=== PATIENT | male | born 1965 | race Caucasian/White ===

== ENCOUNTER 2021-06-13 08:51 | Outpatient (REF) | payer OTHER, SELFPAY ==
[2021-06-13 11:36] LABS: Hemoglobin 15.2 g/dl (14.0-18.0); Mean Corpuscular Hemoglobin 32.3 pg (27.0-33.0); Mean Corpuscular Volume 97.9 fL (80.0-98.0); Mean Platelet Volume 10.4 fL (9.4-12.4); Platelet Count 227 X10*3/uL (160-400); Red Cell Distribution Width 12.9 % (11.0-16.0); White Blood Count 4.2 X10*3/uL (4.8-10.8)
[2021-06-13 12:10] LABS: Thyroid Stimulating Hormone 2.18 uIU/mL (0.32-4.0)
[2021-06-13 12:26] LABS: Folate 13.6 ng/mL (> or = 4.0); Vitamin B12 327 pg/mL (200-900)
[2021-06-13 12:27] LABS: Alanine Aminotransferase 22 U/L (0-40); Albumin Level 4.2 g/dL (3.5-5.0); Alkaline Phosphatase 44 U/L (39-117); Anion Gap 13 (12-20); Aspartate Amino Transferase 28 U/L (5-37); Bilirubin Direct 0.3 mg/dL (0.0-0.5); Bilirubin Total 0.9 mg/dL (0.0-1.0); Blood Urea Nitrogen 17 mg/dL (9-16); Calcium 9.7 mg/dL (8.4-10.2); Carbon Dioxide 26 mmol/L (22-29); Chloride 105 mmol/L (96-108); Cholesterol 209 mg/dL; Estimated Glomerular Filt Rate > 60; Glucose Random 95 mg/dL (60-115); HDL Cholesterol 53 mg/dL; LDL Cholesterol Calculated 142 mg/dl; Potassium 5.6 mmol/L (3.3-5.1); Sodium 138 mmol/L (135-145); Total Protein 6.8 g/dL (6.5-8.0); Triglycerides 71 mg/dL
[2021-06-18 14:52] LABS: Vitamin D 25-OH, D2 <4 ng/mL; Vitamin D 25-OH, D3 18 ng/mL; Vitamin D 25-OH, Total 18 ng/mL (30-100)
== END 2021-06-13 08:52 | disposition home or self-care (01) ==
LOC: HO.HMGCLDS 08:51
PROVIDERS: Visit Provider Internal Medicine
DX: Z00.00 Encounter for general adult medical examination without abnormal findings (principal)
CPT/HCPCS: 36415; 80048; 80061; 80076; 82306; 82607; 82746; 84443; 85027

== ENCOUNTER 2021-06-17 09:02 | Outpatient (REF) | payer OTHER, SELFPAY ==
[2021-06-17 12:46] LABS: Anion Gap 11 (12-20); Blood Urea Nitrogen 13 mg/dL (9-16); Calcium 9.6 mg/dL (8.4-10.2); Carbon Dioxide 28 mmol/L (22-29); Chloride 106 mmol/L (96-108); Estimated Glomerular Filt Rate > 60; Glucose Random 94 mg/dL (60-115); Potassium 4.5 mmol/L (3.3-5.1); Sodium 140 mmol/L (135-145)
== END 2021-06-17 09:03 | disposition home or self-care (01) ==
LOC: HO.HMGCLDS 09:02
PROVIDERS: Visit Provider Internal Medicine
DX: E87.5 Hyperkalemia (principal)
CPT/HCPCS: 36415; 80048

== ENCOUNTER 2022-06-12 09:10 | Outpatient (REF) | payer OTHER, SELFPAY ==
[2022-06-12 10:23] LABS: Hematocrit 44.2 % (42.0-52.0); Hemoglobin 14.9 g/dl (14.0-18.0); Mean Corpuscular HGB Conc 33.7 g/dl (31.0-36.0); Mean Corpuscular Hemoglobin 32.7 pg (27.0-33.0); Mean Corpuscular Volume 97.1 fL (80.0-98.0); Mean Platelet Volume 10.2 fL (9.4-12.4); Platelet Count 263 X10*3/uL (160-400); Red Blood Count 4.55 X10*6/uL (4.60-5.80); Red Cell Distribution Width 12.4 % (11.0-16.0); White Blood Count 4.1 X10*3/uL (4.8-10.8)
[2022-06-12 10:55] LABS: Alanine Aminotransferase 30 U/L (0-40); Albumin Level 4.2 g/dL (3.5-5.0); Alkaline Phosphatase 44 U/L (39-117); Anion Gap 13 (12-20); Aspartate Amino Transferase 27 U/L (5-37); Bilirubin Direct 0.3 mg/dL (0.0-0.5); Bilirubin Total 0.9 mg/dL (0.0-1.0); Blood Urea Nitrogen 14 mg/dL (9-16); Calcium 9.6 mg/dL (8.4-10.2); Carbon Dioxide 27 mmol/L (22-29); Chloride 106 mmol/L (96-108); Cholesterol 177 mg/dL; Estimated Glomerular Filt Rate > 60; Glucose Random 72 mg/dL (60-115); HDL Cholesterol 46 mg/dL; LDL Cholesterol Calculated 118 mg/dl; Potassium 4.9 mmol/L (3.3-5.1); Sodium 141 mmol/L (135-145); Total Protein 6.5 g/dL (6.5-8.0); Triglycerides 66 mg/dL
[2022-06-12 11:00] LABS: Prostate Specific Antigen Scr 1.71 ng/mL (<0.05-4.0); Thyroid Stimulating Hormone 1.13 uIU/mL (0.32-4.0)
== END 2022-06-12 09:11 | disposition home or self-care (01) ==
LOC: HO.10HDL 09:10
PROVIDERS: Visit Provider Internal Medicine
DX: Z12.5 Encounter for screening for malignant neoplasm of prostate (principal); I10 Essential (primary) hypertension; N40.0 Benign prostatic hyperplasia without lower urinary tract symptoms
CPT/HCPCS: 36415; 80048; 80061; 80076; 84153; 84443; 85027

== ENCOUNTER 2023-04-23 09:23 | Outpatient (AMB) | payer OTHER, SELFPAY ==
--- NOTE | 2023-04-23 09:27 | A.OFFPC_ITS ---
Vital Signs 04/23/23 09:29 Height 5 ft 7.5 in Weight 158 lb 2 oz BMI 24.4 BP 110/70 Blood Pressure Location Lt brachial Position Sitting Intake Visit Reasons: Hypertension Intake Note: Patient is here to follow up on HTN. Construction Carpenters Helper Required: No Cut Out Worker: Not Required per policy Accompanied by: Self / Same As Patient Allergies No Known Allergies Allergy (Verified 04/24/23 09:31) Medication List - Last Reconciled 04/24/23 by Alonso Danielle MD cholecalciferol (vitamin D3) 1,250 mcg PO QWEEK lisinopril 10 mg PO DAILY sumatriptan succinate 50 mg PO ONCE 30 days Tobacco use date assessed: 04/23/23 Dental Screening Dental Screen Date: 04/23/23 Did you have a dental visit in the last 12 months?: Yes Did you have a dental problem in the last 6 months where you did not have access to dental care?: No Was dental information given to patient?: Patient has dentist HPI Hypertension HPI Details 57-year-old male presents to the office to discuss his chronic medical conditions. Patient is in good health and able to do all activities of daily living. He checks his blood pressures at home and the systolic ranges between 130-135 and diastolic is 85-95. He is exercising 5 to 6 times a week. Quantity of alcohol consumption has reduced to 2-3 drinks 3 times a week. Able to function and do all activities of daily living. [facility] Medical History (Updated 04/24/23 @ 09:33 by Alonso Danielle MD) Benign prostatic hyperplasia without lower urinary tract symptoms Essential (primary) hypertension Surgical History No history of previous surgery Family History Mother No problems noted. Father High blood pressure Other Mental health disorder Social History Housing: House Alcohol intake: current Alcohol intake frequency: holidays/special occasions only Patient Tobacco Use Status: Never used Tobacco e-Cigarette/Vaping Use: Never Used Second Hand Smoke Exposure: No service: No Current occupational status: employed Current occupation: Utility Current occupational exposures/hazards: No Cognitive needs: No Hearing needs: No Vision needs: Yes (reading glasses) Questionnaire PHQ-9 Over the last 2 weeks, how often have you been bothered by any of the following problems? 1. Little interest or pleasure in doing things: not at all 2. Feeling down, depressed, or hopeless: not at all 3. Trouble falling or staying asleep, or sleeping too much: not at all 4. Feeling tired or having little energy: not at all 5. Poor appetite or overeating: not at all 6. Feeling bad about yourself - or that you are a failure or have let yourself or your family down: not at all 7. Trouble concentrating on things, such as reading the newspaper or watching television: not at all 8. Moving or speaking so slowly that other people could have noticed. Or the opposite - being so fidgety or restless that you have been moving around a lot more than usual: not at all 9. Thoughts that you would be better off or of hurting yourself in some way: not at all Total score: 0 Depression Screening Interpretation: Negative Depression Screening Done: Yes Source: Developed by Drs. He Bentley, Olivia Gupta, Tyshawn Frost and colleagues, with an educational agus from [employer]. Thrive Questionnaire Date Thrive assessed: 04/23/23 I am a: Patient What is your living situation today?: I have a steady place to live Within the past 12 months, did the food you bought not last and you didn't have the money to get more?: Never true Within the past 12 months, did you worry whether your food would run out before you got money to buy more?: Never true Do you have trouble paying for medicines?: No Do you have trouble getting transportation to medical appointments?: No Do you have trouble paying your heating and electricity bill?: No Do you have trouble taking care of your child, family member or friend?: No Do you have trouble with day-to-day activities such as bathing, preparing meals, shopping, managing finances, etc.?: No Are you currently unemployed and looking for a job?: No Are you interested in more education?: No Currently or been in a relationship where the following occur: no concerns reported THRIVE Score: 0 AUDIT C Alcohol Use Questionnaire (AUDIT-C) 1. How often do you have a drink containing alcohol?: Monthly or less 2. How many drinks containing alcohol do you have on a typical day when you are drinking?: 1 or 2 Total Score: 1 SANG-7 AMB Questionnaire SANG-7 Date SANG - 7 assessed: 04/23/23 Feeling nervous, anxious, or on edge: 0 = Not at all Not being able to stop or control worryin = Not at all Worrying too much about different things: 0 = Not at all Trouble relaxin = Not at all Being so restless that it is hard to sit still: 0 = Not at all Becoming easily annoyed or irritable: 0 = Not at all Feeling afraid as if something awful might happen: 0 = Not at all Total SANG-7 score (0-4 normal; 5-9 mild; 10-14 moderate; 15-21 severe): 0 Source: Developed by Drs. He Bentley, Olivia Gupta, Tyshawn Frost and colleagues, with an educational agus from [employer]. Physical exam (Primary Care) Vital Signs: Last Vital Signs BP 110/70 04/23/23 09:29 Care Plan Goal for BP management: Blood pressure is in range. BMI result Body Mass Index 24.4 Tobacco/Smoking Status: Tobacco use Status Tobacco use date assessed 04/23/23 04/23/23 09:34 Patient Tobacco Use Status Never used Tobacco 04/23/23 09:34 e-Cigarette/Vaping Use Never Used 04/23/23 09:34 PHQ-9: PHQ-9 Score PHQ-9: Total score 0 04/23/23 10:16 Depression Screening Interpretation: Negative Thrive Assessment: Date of Thrive Assessment Date Thrive assessed 04/23/23 04/23/23 09:34 Currently or been in a relationship where the following occur: no concerns reported Assessment and Plan Assessment & Plan (1) Essential (primary) hypertension: Code(s): I10 - Essential (primary) hypertension Plan: Blood pressure is in range. Did not increase the blood pressure medications. Continue medications at the same dosage. Blood work has been ordered. Will call with results of the blood work. (2) Benign prostatic hyperplasia without lower urinary tract symptoms: Code(s): N40.0 - Benign prostatic hyperplasia without lower urinary tract symptoms Plan: Currently has no symptoms. PSA to be checked. Orders: Orders Thyroid Stimulating Hormone 04/23/23 I10 - Essential (primary) hypertension UA and rflx microscopic 04/23/23 I10 - Essential (primary) hypertension Basic Metabolic Panel 04/23/23 I10 - Essential (primary) hypertension Complete Blood Count no Diff 04/23/23 I10 - Essential (primary) hypertension Lipid Panel 04/23/23 I10 - Essential (primary) hypertension Liver Panel 04/23/23 I10 - Essential (primary) hypertension Coding Level of Care Code Est Pt Level 4 (49548) Diagnoses Essential (primary) hypertension I10 Benign prostatic hyperplasia without lower urinary tract symptoms N40.0
[2023-04-23 09:29] VITALS: BP 110/70; BMI 24.4
== END 2023-04-23 10:18 | disposition home or self-care (01) ==
PROVIDERS: PCP Internal Medicine; Visit Provider Internal Medicine
DX: I10 Essential (primary) hypertension (principal); N40.0 Benign prostatic hyperplasia without lower urinary tract symptoms
CPT/HCPCS: 99214

== ENCOUNTER 2023-09-03 10:52 | Outpatient (REF) | payer OTHER, SELFPAY ==
[2023-09-03 13:20] LABS: Hematocrit 49.6 % (42.0-52.0); Mean Corpuscular HGB Conc 34.3 g/dl (31.0-36.0); Mean Corpuscular Hemoglobin 33.7 pg (27.0-33.0); Mean Corpuscular Volume 98.2 fL (80.0-98.0); Mean Platelet Volume 9.7 fL (9.4-12.4); Platelet Count 315 X10*3/uL (160-400); Red Blood Count 5.05 X10*6/uL (4.60-5.80); Red Cell Distribution Width 12.7 % (11.0-16.0); White Blood Count 6.4 X10*3/uL (4.8-10.8)
[2023-09-03 13:53] LABS: Prostate Specific Antigen Scr 3.16 ng/mL (<0.05-4.0)
[2023-09-03 14:06] LABS: Alanine Aminotransferase 24 U/L (0-40); Alkaline Phosphatase 61 U/L (39-117); Anion Gap 17 (12-20); Aspartate Amino Transferase 45 U/L (5-37); Bilirubin Direct 0.3 mg/dL (0.0-0.5); Blood Urea Nitrogen 14 mg/dL (9-16); Calcium 11.1 mg/dL (8.4-10.2); Carbon Dioxide 27 mmol/L (22-29); Chloride 102 mmol/L (96-108); Cholesterol 280 mg/dL (<200); Estimated Glomerular Filt Rate > 60; Glucose Random 122 mg/dL (60-115); HDL Cholesterol 69 mg/dL (>40); LDL Cholesterol Calculated 188 mg/dL (<100); Potassium 5.5 mmol/L (3.3-5.1); Sodium 140 mmol/L (135-145); Total Protein 8.5 g/dL (6.5-8.0); Triglycerides 117 mg/dL (<150)
[2023-09-03 14:07] LABS: Thyroid Stimulating Hormone 1.64 uIU/mL (0.32-4.0)
== END 2023-09-03 10:53 | disposition home or self-care (01) ==
LOC: HO.HMGCLDS 10:52
PROVIDERS: PCP Internal Medicine; Visit Provider Internal Medicine
DX: I10 Essential (primary) hypertension (principal); N40.0 Benign prostatic hyperplasia without lower urinary tract symptoms; Z12.5 Encounter for screening for malignant neoplasm of prostate
CPT/HCPCS: 36415; 80048; 80061; 80076; 84153; 84443; 85027

== ENCOUNTER 2023-10-15 08:14 | Outpatient (REF) | payer BC, SELFPAY ==
[2023-10-15 10:24] LABS: Cholesterol 205 mg/dL (<200); HDL Cholesterol 51 mg/dL (>40); LDL Cholesterol Calculated 141 mg/dL (<100); Triglycerides 68 mg/dL (<150)
== END 2023-10-15 08:15 | disposition home or self-care (01) ==
LOC: HO.HMGCLDS 08:14
PROVIDERS: PCP Internal Medicine; Visit Provider Internal Medicine
DX: Z13.220 Encounter for screening for lipoid disorders (principal); Z83.42 Family history of familial hypercholesterolemia
CPT/HCPCS: 36415; 80061

== ENCOUNTER 2023-10-29 10:21 | Outpatient (AMB) | payer BC, SELFPAY ==
[2023-10-29 10:25] VITALS: BP 144/90; PULSE 91; O2SAT 98; BMI 24.1
--- NOTE | 2023-10-29 10:25 | MHC.PC.OV ---
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 [facility] Medical History (Updated 10/29/23 @ 13:33 by Alonso Danielle MD) Hypercholesterolemia Benign prostatic hyperplasia without lower urinary tract symptoms Essential (primary) hypertension Surgical History No history of previous surgery Family History Mother No problems noted. Father High blood pressure Other Mental health disorder Social History Housing: House Alcohol intake: current Alcohol intake frequency: holidays/special occasions only Patient Tobacco Use Status: Never used Tobacco e-Cigarette/Vaping Use: Never Used Second Hand Smoke Exposure: No service: No Current occupational status: employed Current occupation: Utility Current occupational exposures/hazards: No Cognitive needs: No Hearing needs: No Vision needs: Yes (reading glasses) Questionnaire PHQ-9 Over the last 2 weeks, how often have you been bothered by any of the following problems? 1. Little interest or pleasure in doing things: not at all 2. Feeling down, depressed, or hopeless: not at all 3. Trouble falling or staying asleep, or sleeping too much: not at all 4. Feeling tired or having little energy: not at all 5. Poor appetite or overeating: not at all 6. Feeling bad about yourself - or that you are a failure or have let yourself or your family down: not at all 7. Trouble concentrating on things, such as reading the newspaper or watching television: not at all 8. Moving or speaking so slowly that other people could have noticed. Or the opposite - being so fidgety or restless that you have been moving around a lot more than usual: not at all 9. Thoughts that you would be better off or of hurting yourself in some way: not at all Total score: 0 Depression Screening Interpretation: Negative Depression Screening Done: Yes Source: Developed by Drs. He Bentley, Tyshawn Matos and colleagues, with an educational agus from [employer]. Thrive Questionnaire Date Thrive assessed: 04/23/23 Currently or been in a relationship where the following occur: No concerns reported THRIVE Score: 0 AUDIT C Alcohol Use Questionnaire (AUDIT-C) 1. How often do you have a drink containing alcohol?: Monthly or less 2. How many drinks containing alcohol do you have on a typical day when you are drinking?: 1 or 2 3. How often do you have six or more drinks on one occasion?: Never Total Score: 1 SANG-7 AMB Questionnaire SANG-7 Date SANG - 7 assessed: 10/29/23 Feeling nervous, anxious, or on edge: 0 = Not at all Not being able to stop or control worryin = Not at all Worrying too much about different things: 0 = Not at all Trouble relaxin = Not at all Being so restless that it is hard to sit still: 0 = Not at all Becoming easily annoyed or irritable: 0 = Not at all Feeling afraid as if something awful might happen: 0 = Not at all Total SANG-7 score (0-4 normal; 5-9 mild; 10-14 moderate; 15-21 severe): 0 Source: Developed by Drs. He Bentley, Olivia Gupta, Tyshawn Frost and colleagues, with an educational agus from [employer]. Physical exam (Primary Care) Vital Signs: Last Vital Signs Pulse 91 10/29/23 10:25 BP 144/90 H 10/29/23 10:25 Pulse Ox 98 10/29/23 10:25 Oxygen Delivery Method Room Air 08/15/24 10:25 Care Plan Goal for BP management: Blood pressure is in range. BMI result Body Mass Index 24.1 Tobacco/Smoking Status: Tobacco use Status Tobacco use date assessed 04/23/23 10/29/23 10:29 Patient Tobacco Use Status Never used Tobacco 10/29/23 10:29 e-Cigarette/Vaping Use Never Used 10/29/23 10:29 PHQ-9: PHQ-9 Score PHQ-9: Total score 0 10/29/23 10:29 Depression Screening Interpretation: Negative Thrive Assessment: Date of Thrive Assessment Date Thrive assessed 04/23/23 10/29/23 10:29 Currently or been in a relationship where the following occur: No concerns reported Const General: cooperative and healthy appearing Nutritional Appearance: well nourished Orientation/consciousness: patient oriented x3 Limitations: no limitations HENMT Head: Yes normal to inspection Eyes General: appearance normal, both eyes and all related structures Neck Neck: Yes normal visual inspection Chest Chest palpation & inspection: normal palpation of entire chest wall Resp Effort & Inspection: normal respiratory effort Neuro General: patient oriented x3 Assessment and Plan Assessment & Plan (1) Hypercholesterolemia: Code(s): E78.00 - Pure hypercholesterolemia, unspecified Plan: Blood work reviewed. LDL is elevated. Patient was encouraged to start statins. (2) Essential (primary) hypertension: Code(s): I10 - Essential (primary) hypertension Plan: Blood pressure is in range. (3) Annual physical exam: Code(s): Z00.00 - Encounter for general adult medical examination without abnormal findings Plan: Up-to-date on screening colonoscopy. Coding Level of Care Code Est Pt Prev Care 40-64y(29442) Diagnoses Hypercholesterolemia E78.00 Essential (primary) hypertension I10 Annual physical exam Z00.00
== END 2023-10-29 11:00 | disposition home or self-care (01) ==
PROVIDERS: PCP Internal Medicine; Visit Provider Internal Medicine
DX: E78.00 Pure hypercholesterolemia, unspecified (principal); I10 Essential (primary) hypertension; Z00.00 Encounter for general adult medical examination without abnormal findings
CPT/HCPCS: 99396

== ENCOUNTER 2024-06-16 08:52 | Outpatient (REF) | payer BC, SELFPAY ==
[2024-06-16 11:03] LABS: Appearance Urine Clear; Color Urine Yellow; Glucose Urine UA Negative (Negative); Leukocyte Esterase Urine Negative (Negative); Nitrite Urine Negative (Negative); Urine Blood Negative (Negative); Urine Ketones Negative (Negative); Urine Protein Negative (Neg-Trace)
[2024-06-16 11:30] LABS: Hematocrit 44.1 % (42.0-52.0); Hemoglobin 14.7 g/dl (14.0-18.0); Mean Corpuscular HGB Conc 33.3 g/dl (31.0-36.0); Mean Corpuscular Hemoglobin 32.6 pg (27.0-33.0); Mean Corpuscular Volume 97.8 fL (80.0-98.0); Mean Platelet Volume 10.1 fL (9.4-12.4); Platelet Count 269 X10*3/uL (160-400); Red Blood Count 4.51 X10*6/uL (4.60-5.80); White Blood Count 4.8 X10*3/uL (4.8-10.8)
[2024-06-16 12:15] LABS: Alanine Aminotransferase 31 U/L (0-40); Albumin Level 4.3 g/dL (3.5-5.0); Alkaline Phosphatase 48 U/L (39-117); Anion Gap 13 (12-20); Aspartate Amino Transferase 42 U/L (5-37); Bilirubin Direct 0.2 mg/dL (0.0-0.5); Bilirubin Total 0.7 mg/dL (0.0-1.0); Blood Urea Nitrogen 16 mg/dL (9-16); Calcium 9.4 mg/dL (8.4-10.2); Carbon Dioxide 25 mmol/L (22-29); Chloride 103 mmol/L (96-108); Cholesterol 236 mg/dL (<200); Estimated Glomerular Filt Rate > 60; Glucose Random 88 mg/dL (60-115); HDL Cholesterol 61 mg/dL (>40); LDL Cholesterol Calculated 161 mg/dL (<100); Potassium 4.5 mmol/L (3.3-5.1); Prostate Specific Antigen Scr 2.04 ng/mL (<0.05-4.0); Sodium 136 mmol/L (135-145); Total Protein 7.1 g/dL (6.5-8.0); Triglycerides 73 mg/dL (<150)
[2024-06-16 12:30] LABS: Thyroid Stimulating Hormone 1.74 uIU/mL (0.32-4.0)
== END 2024-06-16 08:53 | disposition home or self-care (01) ==
LOC: HO.HMGCLDS 08:52
PROVIDERS: PCP Internal Medicine; Visit Provider Internal Medicine
DX: I10 Essential (primary) hypertension (principal); E78.00 Pure hypercholesterolemia, unspecified; Z12.5 Encounter for screening for malignant neoplasm of prostate
CPT/HCPCS: 36415; 80048; 80061; 80076; 81003; 84153; 84443; 85027

== ENCOUNTER 2024-06-23 13:28 | Outpatient (AMB) | payer BC, SELFPAY ==
--- NOTE | 2024-06-23 13:40 | MHC.PC.OV ---
Vital Signs 06/23/24 13:41 Height 5 ft 7.5 in Weight 161 lb 8 oz BMI 24.9 BP 120/82 Blood Pressure Location Lt brachial Position Sitting Pulse 112 H Pulse Source Pulse Oximeter Temp 97.5 F Temp Source Temporal Artery Scan Pulse Oximetry (%) 96 Oxygen Delivery Method Room Air Intake Visit Reasons: 6 month follow up Intake Note: Patient is here to follow up on HTN, BPH, Migraine. Auth Specialist Required: No Energy Conservation Director: Not Required per policy Accompanied by: Self / Same As Patient Allergies No Known Allergies Allergy (Verified 06/23/24 13:41) Tobacco use date assessed: 06/23/24 Dental Screening Dental Screen Date: 06/23/24 Did you have a dental visit in the last 12 months?: Yes Did you have a dental problem in the last 6 months where you did not have access to dental care?: No Was dental information given to patient?: Patient has dentist [facility] Medical History (Updated 10/29/23 @ 13:33 by Alonso Danielle MD) Hypercholesterolemia Benign prostatic hyperplasia without lower urinary tract symptoms Essential (primary) hypertension Surgical History (Updated 06/23/24 @ 14:05 by Alonso Danielle MD) History of colonoscopy (05/22/15) No history of previous surgery Family History Mother No problems noted. Father High blood pressure Other Mental health disorder Social History Housing: House Alcohol intake: current Alcohol intake frequency: holidays/special occasions only Patient Tobacco Use Status: Never used Tobacco e-Cigarette/Vaping Use: Never Used Second Hand Smoke Exposure: No service: No Current occupational status: employed Current occupation: Utility Current occupational exposures/hazards: No Cognitive needs: No Hearing needs: No Vision needs: Yes (reading glasses) Questionnaire PHQ-9 Over the last 2 weeks, how often have you been bothered by any of the following problems? 1. Little interest or pleasure in doing things: not at all 2. Feeling down, depressed, or hopeless: not at all 3. Trouble falling or staying asleep, or sleeping too much: not at all 4. Feeling tired or having little energy: not at all 5. Poor appetite or overeating: not at all 6. Feeling bad about yourself - or that you are a failure or have let yourself or your family down: not at all 7. Trouble concentrating on things, such as reading the newspaper or watching television: not at all 8. Moving or speaking so slowly that other people could have noticed. Or the opposite - being so fidgety or restless that you have been moving around a lot more than usual: not at all 9. Thoughts that you would be better off or of hurting yourself in some way: not at all Total score: 0 Depression Screening Interpretation: Negative Depression Screening Done: Yes Source: Developed by Drs. He Bentley, Olivia Gupta, Tyshawn Frost and colleagues, with an educational agus from [employer]. Thrive Questionnaire Date Thrive assessed: 06/23/24 I am a: Patient What is your living situation today?: I have a steady place to live Within the past 12 months, did the food you bought not last and you didn't have the money to get more?: Never true Within the past 12 months, did you worry whether your food would run out before you got money to buy more?: Never true Do you have trouble paying for medicines?: No Do you have trouble getting transportation to medical appointments?: No Do you have trouble paying your heating and electricity bill?: No Do you have trouble taking care of your child, family member or friend?: No Do you have trouble with day-to-day activities such as bathing, preparing meals, shopping, managing finances, etc.?: No Are you currently unemployed and looking for a job?: No Are you interested in more education?: No Please select the resources that you would like help with: None Currently or been in a relationship where the following occur: No concerns reported THRIVE Score: 0 AUDIT C Alcohol Use Questionnaire (AUDIT-C) 1. How often do you have a drink containing alcohol?: Monthly or less 2. How many drinks containing alcohol do you have on a typical day when you are drinking?: 1 or 2 Total Score: 1 SANG-7 AMB Questionnaire SANG-7 Date SANG - 7 assessed: 06/23/24 Feeling nervous, anxious, or on edge: 0 = Not at all Not being able to stop or control worryin = Not at all Worrying too much about different things: 0 = Not at all Trouble relaxin = Not at all Being so restless that it is hard to sit still: 0 = Not at all Becoming easily annoyed or irritable: 0 = Not at all Feeling afraid as if something awful might happen: 0 = Not at all Total SANG-7 score (0-4 normal; 5-9 mild; 10-14 moderate; 15-21 severe): 0 Source: Developed by Drs. He Bentley, Olivia Gupta, Tyshawn Frost and colleagues, with an educational agus from [employer]. Physical exam (Primary Care) Vital Signs: Last Vital Signs Temp 97.5 F 06/23/24 13:41 Pulse 112 H 06/23/24 13:41 BP 120/82 06/23/24 13:41 Pulse Ox 96 06/23/24 13:41 Oxygen Delivery Method Room Air 06/23/24 13:41 BMI result Body Mass Index 24.9 Tobacco/Smoking Status: Tobacco use Status Tobacco use date assessed 06/23/24 06/23/24 13:46 Patient Tobacco Use Status Never used Tobacco 06/23/24 13:46 e-Cigarette/Vaping Use Never Used 06/23/24 13:46 PHQ-9: PHQ-9 Score PHQ-9: Total score 0 06/23/24 13:46 Depression Screening Interpretation: Negative Thrive Assessment: Date of Thrive Assessment Date Thrive assessed 06/23/24 06/23/24 13:46 Currently or been in a relationship where the following occur: No concerns reported Coding Level of Care Code Est Pt Level 4 (73118) Complex EM visit Add On G2211 Diagnoses Essential (primary) hypertension I10 Hypercholesterolemia E78.00 Assessment & Plan Assessment & Plan (1) Essential (primary) hypertension: Code(s): I10 - Essential (primary) hypertension Category: Medical Plan: Continue blood pressure medications at same dosage. (2) Hypercholesterolemia: Code(s): E78.00 - Pure hypercholesterolemia, unspecified Category: Medical Plan: Atorvastatin has been added. Side effects and use of the medication was discussed in detail. Plan History of Present Illness The patient is a 58-year-old male presenting with concerns regarding the management of hyperlipidemia. Previously, there was no commencement of statin therapy despite patient agreement to start medication, likely due to oversight in prescription. His family history of cardiovascular disease prompts further action to mitigate risk. Currently, hypertension is adequately controlled with lisinopril. The patient is stable with no acute symptoms or side effects reported from current hypertension management. Social History - Engaged in regular exercise, including walking and jogging. - Reports being busy with work. - Denies any issues with functional activities or mobility. - Actively manages health through regular physical activity. Review of Systems - Cardiovascular: Denies palpitations, reports regular exercise tolerance. - Musculoskeletal: Denies joint pain, reports engagement in physical activity. - Ocular: Denies experiences of halos around lights. Physical Exam General: Cooperative and healthy appearing Nutritional Appearance: Well nourished Orientation/consciousness: Patient oriented x3 Limitations: No limitations Head: Normal to inspection General: Appearance normal, both eyes and all related structures Neck: Normal visual inspection Chest: Normal palpation of entire chest wall Respiratory: N ormal respiratory effort Neurology: Patient oriented x3, able to function, do all activities, drives at night without serious issues, exercises regularly, no complaints. Results - Colonoscopy report reviewed during the visit (results not discussed in detail). Plan I will initiate atorvastatin for hyperlipidemia management, considering the patient's family history of cardiovascular disease and increased risk for heart disease and stroke. Atorvastatin is chosen due to its efficacy and minimal side effects profile. Adherence to the once-daily evening dose is emphasized for continued cardiovascular protection. The patient will maintain lisinopril therapy for hypertension. Follow-up is set for six months, with plans to repeat laboratory tests to monitor cholesterol management. Patient was informed and verbally consented to the use of an ambient scribe for clinic note documentation during this visit. Discussion Notes I discussed with the patient the initiation of atorvastatin due to the familial risk of cardiovascular disease and potential benefits in reducing his cholesterol levels. The discussion highlighted the benefits, such as reduced risk of heart disease and stroke, and involved an explanation of the potential side effects, specifically the low incidence of muscle aches. I also provided assurances regarding the efficacy and tolerability of atorvastatin, which has been in use for many years. The necessity of adherence to the medication regimen was emphasized, as discontinuation would negate protective benefits. The importance of maintaining blood pressure control with lisinopril was reiterated, and follow-up care, including blood work in six months, was planned. We ensured patient consent regarding the treatment regimen and reviewed any further concerns. Patient Instructions - Start atorvastatin (Lipitor) as prescribed, take once daily in the evening. - Continue current lisinopril prescription for hypertension. - Monitor for any muscle discomfort or changes in symptoms. - Maintain current levels of physical activity. - Follow-up appointment in six months for blood work and evaluation. - Contact the office if new symptoms arise or if there are concerns about medication. Medications: New atorvastatin 10 mg PO BEDTIME 90 tabs 1RF
[2024-06-23 13:41] VITALS: BP 120/82; PULSE 112; TEMP 36.4; O2SAT 96; BMI 24.9
== END 2024-06-23 14:14 | disposition home or self-care (01) ==
LOC: HO.HMCH 13:29
PROVIDERS: PCP Internal Medicine; Visit Provider Internal Medicine
DX: I10 Essential (primary) hypertension (principal); E78.00 Pure hypercholesterolemia, unspecified

== ENCOUNTER → 2024-06-23 13:28 | Outpatient (BNVA) | payer BC, SELFPAY | PROVIDERS: PCP Internal Medicine; Visit Provider Internal Medicine | DX: Z13.89 Encounter for screening for other disorder (principal) ==

== ENCOUNTER 2024-12-29 08:12 | Outpatient (AMB) | payer BC, SELFPAY ==
--- NOTE | 2024-12-29 08:17 | A.OFFPC_ITS ---
Vital Signs 12/29/24 08:18 Height 5 ft 7.5 in Weight 162 lb 4 oz BMI 25.0 BP 132/68 Blood Pressure Location Lt brachial Position Sitting Pulse 99 Pulse Source Pulse Oximeter Temp 97.3 F Temp Source Temporal Artery Scan Pulse Oximetry (%) 93 Oxygen Delivery Method Room Air Intake Visit Reasons: 6mth f/u Intake Note: Patient is here to follow up on BPH, HTN, Hypercholesterolemia. Mine Superintendent Required: No Printer Apprentice: Not Required per policy Accompanied by: Self / Same As Patient Allergies No Known Allergies Allergy (Verified 12/29/24 08:43) Medication List - Last Reconciled 12/29/24 by Alonso Danielle MD atorvastatin 10 mg PO BEDTIME lisinopril 10 mg PO DAILY sumatriptan succinate 50 mg PO ONCE 30 days Tobacco use date assessed: 12/29/24 Dental Screening Dental Screen Date: 06/23/24 HPI 6mth f/u HPI Details 59-year-old male presents to the office to discuss his chronic medical conditions. Since last office visit, the statins were started and he is compliant with it. Reports no side effects. Able to function and do all activities of daily living. [facility] Medical History Hypercholesterolemia Benign prostatic hyperplasia without lower urinary tract symptoms Essential (primary) hypertension Surgical History History of colonoscopy (05/22/15) Family History Mother No problems noted. Father High blood pressure Other Mental health disorder Social History Housing: House Alcohol intake: current Alcohol intake frequency: holidays/special occasions only Patient Tobacco Use Status: Never used Tobacco e-Cigarette/Vaping Use: Never Used Second Hand Smoke Exposure: No service: No Current occupational status: employed Current occupation: Utility Current occupational exposures/hazards: No Cognitive needs: No Hearing needs: No Vision needs: Yes (reading glasses) Questionnaire PHQ-9 Over the last 2 weeks, how often have you been bothered by any of the following problems? 1. Little interest or pleasure in doing things: not at all 2. Feeling down, depressed, or hopeless: not at all 3. Trouble falling or staying asleep, or sleeping too much: not at all 4. Feeling tired or having little energy: not at all 5. Poor appetite or overeating: not at all 6. Feeling bad about yourself - or that you are a failure or have let yourself or your family down: not at all 7. Trouble concentrating on things, such as reading the newspaper or watching television: not at all 8. Moving or speaking so slowly that other people could have noticed. Or the opposite - being so fidgety or restless that you have been moving around a lot more than usual: not at all 9. Thoughts that you would be better off or of hurting yourself in some way: not at all Total score: 0 Depression Screening Interpretation: Negative Depression Screening Done: Yes Source: Developed by Drs. He Bentley, Olivia Gupta, Tyshawn Frost and colleagues, with an educational agus from [employer]. Thrive Questionnaire Date Thrive assessed: 12/22/24 I am a: Patient What is your living situation today?: I have a steady place to live Within the past 12 months, did the food you bought not last and you didn't have the money to get more?: Never true Within the past 12 months, did you worry whether your food would run out before you got money to buy more?: Never true Do you have trouble paying for medicines?: No Do you have trouble getting transportation to medical appointments?: No Do you have trouble paying your heating and electricity bill?: No Do you have trouble taking care of your child, family member or friend?: No Do you have trouble with day-to-day activities such as bathing, preparing meals, shopping, managing finances, etc.?: No Are you currently unemployed and looking for a job?: No Are you interested in more education?: No Please select the resources that you would like help with: None Currently or been in a relationship where the following occur: No concerns reported THRIVE Score: 0 AUDIT C Alcohol Use Questionnaire (AUDIT-C) 1. How often do you have a drink containing alcohol?: 2-3 times a week Total Score: 3 SANG-7 AMB Questionnaire SANG-7 Date SANG - 7 assessed: 06/23/24 Feeling nervous, anxious, or on edge: 0 = Not at all Not being able to stop or control worryin = Not at all Worrying too much about different things: 0 = Not at all Trouble relaxin = Not at all Being so restless that it is hard to sit still: 0 = Not at all Becoming easily annoyed or irritable: 0 = Not at all Feeling afraid as if something awful might happen: 0 = Not at all Total SANG-7 score (0-4 normal; 5-9 mild; 10-14 moderate; 15-21 severe): 0 Source: Developed by Drs. He Bentley, Olivia Gupta, Tyshawn Frost and colleagues, with an educational agus from [employer]. Physical exam (Primary Care) Vital Signs: Last Vital Signs Temp 97.3 F 12/29/24 08:18 Pulse 99 12/29/24 08:18 BP 132/68 12/29/24 08:18 Pulse Ox 93 12/29/24 08:18 Oxygen Delivery Method Room Air 12/29/24 08:18 BMI result Body Mass Index 25.0 Tobacco/Smoking Status: Tobacco use Status Tobacco use date assessed 12/29/24 12/29/24 08:22 Patient Tobacco Use Status Never used Tobacco 12/29/24 08:22 e-Cigarette/Vaping Use Never Used 12/29/24 08:22 PHQ-9: PHQ-9 Score PHQ-9: Total score 0 12/29/24 08:37 Depression Screening Interpretation: Negative Thrive Assessment: Date of Thrive Assessment Date Thrive assessed 12/22/24 12/29/24 08:22 Currently or been in a relationship where the following occur: No concerns reported Const General: cooperative and healthy appearing Nutritional Appearance: well nourished Orientation/consciousness: patient oriented x3 Limitations: no limitations HENMT Head: Yes normal to inspection Eyes General: appearance normal, both eyes and all related structures Neck Neck: Yes normal visual inspection Chest Chest palpation & inspection: normal palpation of entire chest wall Resp Effort & Inspection: normal respiratory effort Neuro General: patient oriented x3 Office Procedures Flu Questionnaire Does the patient have a severe egg allergy?: No Does the patient have severe life threatening allergies?: No Does the patient have a fever or illness today?: No Has the patient ever had Guillain-Bozman Syndrome?: No Has the patient ever had any past reaction to a flu shot?: No Immunizations Fluarix [id number] (PF) 45 mcg (15 mcg x 3)/0.5 mL IM syringe Performing Provider: Alonso Danielle MD [facility] Administered by: Betsy Ewing CMA on 12/29/24 08:36 Dose Route Admin Location Dispensed Lot Number Expiration Date [facility] Pole [employer]ander Operator 0.5 mL IM Left Deltoid 0.5 mL [id number] 09/12/25 [id number] [employer] VIS Given Date VIS Provided VIS Publication Date 12/29/24 Single Vaccine 24 Eligibility Eligibility Date Funding Source Not [facility] Eligible 12/29/24 Private Coding Diagnoses Essential (primary) hypertension I10 Hypercholesterolemia E78.00 Assessment & Plan Assessment & Plan (1) Essential (primary) hypertension: Code(s): I10 - Essential (primary) hypertension Category: Medical Plan: Blood pressure is in range. Continue current medications. (2) Hypercholesterolemia: Code(s): E78.00 - Pure hypercholesterolemia, unspecified Category: Medical Plan: Blood work has been ordered. Will call with results. Orders: Orders Liver Panel Today I10 - Essential (primary) hypertension Influenza [id number] Immunization Today Z23 - Encounter for immunization Basic Metabolic Panel Today I10 - Essential (primary) hypertension Complete Blood Count no Diff Today I10 - Essential (primary) hypertension Lipid Panel Today I10 - Essential (primary) hypertension Thyroid Stimulating Hormone Today I10 - Essential (primary) hypertension UA and rflx microscopic Today I10 - Essential (primary) hypertension Medications: Refilled lisinopril 10 mg PO DAILY 90 tabs 1RF
[2024-12-29 08:18] VITALS: BP 132/68; PULSE 99; TEMP 36.3; O2SAT 93; BMI 25.0
== END 2024-12-29 08:38 | disposition home or self-care (01) ==
LOC: HO.HMCH 08:13
PROVIDERS: PCP Internal Medicine; Visit Provider Internal Medicine
DX: Z23 Encounter for immunization (principal)

== ENCOUNTER → 2024-12-29 08:12 | Outpatient (BNVA) | payer BC, SELFPAY | PROVIDERS: PCP Internal Medicine; Visit Provider Internal Medicine | DX: I10 Essential (primary) hypertension (principal); E78.00 Pure hypercholesterolemia, unspecified; Z23 Encounter for immunization | CPT/HCPCS: 90471; 90656; 96127 ==

== ENCOUNTER 2025-01-06 10:58 | Outpatient (REF) | payer BC, SELFPAY ==
[2025-01-06 13:33] LABS: Hematocrit 43.8 % (42.0-52.0); Hemoglobin 14.7 g/dl (14.0-18.0); Mean Corpuscular HGB Conc 33.6 g/dl (31.0-36.0); Mean Corpuscular Hemoglobin 32.5 pg (27.0-33.0); Mean Corpuscular Volume 96.9 fL (80.0-98.0); NRBC Abs Auto 0.000 X10*3/uL (0.0-0.012); NRBC Pct Auto 0.0 /100WBC (0.0-0.2); Platelet Count 263 X10*3/uL (160-400); Red Blood Count 4.52 X10*6/uL (4.60-5.80); White Blood Count 6.2 X10*3/uL (4.8-10.8)
[2025-01-06 14:21] LABS: Alanine Aminotransferase 32 U/L (0-40); Albumin Level 4.8 g/dL (3.5-5.0); Alkaline Phosphatase 55 U/L (39-117); Anion Gap 14 (12-20); Aspartate Amino Transferase 43 U/L (5-37); Blood Urea Nitrogen 16 mg/dL (9-16); Calcium 9.5 mg/dL (8.4-10.2); Carbon Dioxide 26 mmol/L (22-29); Chloride 104 mmol/L (96-108); Cholesterol 198 mg/dL (<200); Estimated Glomerular Filt Rate > 60; HDL Cholesterol 60 mg/dL (>40); Potassium 4.8 mmol/L (3.3-5.1); Sodium 139 mmol/L (135-145); Thyroid Stimulating Hormone 1.21 uIU/mL (0.32-4.0); Total Protein 7.5 g/dL (6.5-8.0); Triglycerides 79 mg/dL (<150)
[2025-01-06 16:29] LABS: Appearance Urine Turbid; Glucose Urine UA Negative (Negative); PH 5.5 (5.0-9.0); Specific Gravity - Urine 1.020 (1.005-1.025)
== END 2025-01-06 10:59 | disposition home or self-care (01) ==
LOC: HO.HMGCLDS 10:58
PROVIDERS: PCP Internal Medicine; Visit Provider Internal Medicine
DX: I10 Essential (primary) hypertension (principal)
CPT/HCPCS: 36415; 80048; 80061; 80076; 81003; 84443; 85027